=== PATIENT | female | born 1955 | race Asian ===

== ENCOUNTER 2021-04-30 06:55 | Day surgery (SDC) | payer MEDICAID ==
[~2021-04-30] VITALS: Ht 154.9 cm; Wt 59.0 kg
[2021-04-30] MEDS ORDERED: fentaNYL CITRATE/PF 100 MCG/2 ML AMP ONE (07:56)
[2021-04-30] MEDS ORDERED: MIDAZOLAM HCL 5 MG/5 ML VIAL ONE (07:57)
[2021-04-30 13:30] VITALS: BP_SYST 124
== END 2021-04-30 10:20 | disposition home or self-care (01) ==
LOC: SDS 06:55 → SMU 06:57 → SDS 10:20
PROVIDERS: ATTEND Internal Medicine
DX: Z12.11 Encounter for screening for malignant neoplasm of colon (principal); I10 Essential (primary) hypertension; E78.5 Hyperlipidemia, unspecified; E11.9 Type 2 diabetes mellitus without complications; Z90.710 Acquired absence of both cervix and uterus; Z79.899 Other long term (current) drug therapy; Z20.822 Contact with and (suspected) exposure to COVID-19
CPT/HCPCS: 36415; 45378; 82962; 87426; G0378; J2250; J3010; U0003